=== PATIENT | female | born 1990 | race Two or more races ===

== ENCOUNTER 2024-01-10 10:52 | Outpatient (AMB) | payer OTHER, SELFPAY ==
--- NOTE | 2024-01-10 11:08 | MHC.OFFVIS ---
Vital Signs 01/10/24 11:10 Height 5 ft 1 in Weight 197 lb 5.019 oz BMI 37.3 BP 126/72 Blood Pressure Location Rt brachial Position Sitting Pulse 84 Pulse Source Pulse Oximeter Pulse Oximetry (%) 99 Oxygen Delivery Method Room Air Intake Visit Reasons: Joint Pain Intake Note: New pt presents today for joint pain consult, referred by by pcp Dr Biggs Reports pain in multiple joints. States pain started approx 4 years ago, but has gotten worse. 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 The condition started approximately 4 years ago but has been worsening. She complains of pain in her hands, wrists,. She denies any swelling. She states that when she wakes up her feet are painful to step on. She denies any skin rashes. Denies any symptoms suggestive of Raynaud's. Denies any weight loss or fevers. Denies any blood or frothy urine. There is no history of DVT/PE. Patient had 4 pregnancies, 2 children and 2 miscarriages. She also has headaches. She takes ibuprofen 800 mg daily as well as Tylenol daily. Does not help her pain much but he also takes it for her headaches. She is unaware of any family history of an autoimmune rheumatic disease. [facility] Surgical History Hx of cholecystectomy Hx of section Family History Other Family history of arthritis Social History Household Members: Children Alcohol intake: current Alcohol intake frequency: holidays/special occasions only Patient Tobacco Use Status: Never used Tobacco Current occupational status: unemployed Female Reproductive History Menstrual Total pregnancies: 4 Number of Living Children: 2 Review of Systems Const Denies fatigue, Reports headache(s), Reports weakness, Reports weight gain and Denies weight loss ENT Reports dysphagia and Reports headache(s) Card Reports dyspnea Resp Reports dyspnea GI Reports dysphagia, Reports heartburn and Reports nausea Musc Reports myalgias, Reports arthralgias and Denies joint swelling Skin/Breast Reports alopecia Neuro Reports headache(s) and Reports weakness Psych Reports abnormal sleep pattern and Reports depression Endo Denies fatigue Physical Exam Vital Signs: Last Vital Signs Pulse 84 01/10/24 11:10 BP 126/72 01/10/24 11:10 Pulse Ox 99 01/10/24 11:10 Oxygen Delivery Method Room Air 01/10/24 11:10 BMI result Body Mass Index 37.3 Const General: cooperative, healthy appearing and comfortable Nutritional Appearance: obese Orientation/consciousness: patient oriented x3 Limitations: no limitations HEENT Head: Yes normocephalic and Yes atraumatic Mouth: moist mucous membranes Resp Effort & Inspection: normal respiratory effort and able to speak in complete sentences Auscultation: clear to auscultation bilaterally Cardio Rate: regular rate Rhythm: regular rhythm Skin General skin exam: no rashes or lesions noted Neuro General: patient oriented x3 Extrem Other: No active synovitis Multiple myofascial tender points Normal nailfold capillaroscopy Negative straight leg raise test Normal range of motion of hands, wrists, elbows without pain Normal range of motion of knees without pain Negative MTP squeeze test Results Reviewed Results Reviewed: Labs 2023 LISA screen negative ESR 21 Assessment & Plan Assessment & Plan (1) Diffuse pain: Code(s): R52 - Pain, unspecified Category: Medical Plan: This is a 33-year-old female who presents for evaluation of diffuse pain. Upon evaluation I do not see any signs suggestive of autoimmune rheumatic disease. Follow-up with PCP Plan I spent 20 minutes reviewing patient's chart, evaluating patient, counseling patient and documenting in the chart Coding Level of Care Code New Pt Level 3 (03322) Diagnoses Diffuse pain R52
[2024-01-10 11:10] VITALS: BP 126/72; PULSE 84; O2SAT 99; BMI 37.3
== END 2024-01-10 11:56 | disposition home or self-care (01) ==
PROVIDERS: PCP Internal Medicine; Visit Provider Student in an Organized Health Care Education/Training Program
DX: R52 Pain, unspecified (principal)
CPT/HCPCS: 99203

== ENCOUNTER → 2024-01-10 10:52 | Outpatient (BNVA) | payer OTHER, SELFPAY | PROVIDERS: PCP Internal Medicine; Visit Provider Student in an Organized Health Care Education/Training Program | DX: R52 Pain, unspecified (principal) | CPT/HCPCS: 99202 ==

== ENCOUNTER 2025-02-20 11:03 | Outpatient (AMB) | payer OTHER, SELFPAY ==
[2025-02-20 11:19] VITALS: BP 142/89; PULSE 86; O2SAT 98; BMI 37.1
--- NOTE | 2025-02-20 11:19 | A.OFFVIS_ITS ---
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 She reports this pain started in 2019. She denies any inciting events. She reports that prolonged sitting aggravates the pain the most. She reports the pain is most severe in the morning. She feels herself in the morning completely stiff. At the morning of exam her pain is 7 to 8/10. In the morning she feels her pain 10/10. In terms of tissue damage he describes her pain as stabbing, lancinating, cut, lacerating, pinching, cramping, crushing, tiring, exhausting, tingling and stinging sensation. She is not able to sleep normally, can not do activities of daily living because of her pain, can not take care of herself, can not function normally, she is on permanent disability because of this pain syndrome, she also has learning disability. Weather changes in movements aggravate her pain. Heat applications and ibuprofen makes her pain slightly better. She went for MRI at [facility] results of which are not available to me, she received multiple sessions of physical therapy which were terminated for non progression and pain aggravation because of physical therapy. She tried chiropractic manipulations which increase her pain she tried 10s unit applications which helps her pain very little. Attempt of injection was made to the patient it was cortisone injection she stated, however anatomical target of the injection is not known to the patient. She reports diclofenac medication helps her pain intermittently. Her past medical history significant for headaches, surgical history 2 C sections, she denies smoking cigarettes denies drinking alcohol denies recreational drugs. [facility] Surgical History Hx of cholecystectomy Hx of section Family History Other Family history of arthritis Social History Household Members: Children Alcohol intake: current Alcohol intake frequency: holidays/special occasions only Patient Tobacco Use Status: Never used Tobacco Current occupational status: unemployed Review of Systems Const All systems reviewed & are unremarkable except as noted in HPI and below ENT Reports Normal hearing present Neuro Reports Normal hearing present, Denies Abnormal speech present, Denies confusion and Denies Sensory deficit (Neuro) Psych Denies confusion Physical Exam Vital Signs: Last Vital Signs Pulse 86 02/20/25 11:19 BP 142/89 H 02/20/25 11:19 Pulse Ox 98 02/20/25 11:19 Oxygen Delivery Method Room Air 02/20/25 11:19 BMI result Body Mass Index 37.1 Const General: no acute distress; No confusion Nutritional Appearance: obese morbidly obese Orientation/consciousness: patient oriented x3 and No confusion Eyes General: appearance normal, both eyes and all related structures Pupils: Equal, round and reactive pupils present EOM: EOMs intact bilaterally Neck Other: Axial neck compression aggravates the pain. Flexing neck forward and flexing backwards equally aggravate her pain in the neck. Reports radiation of the pain to the upper shoulders but denies radiation of the pain to the arms, forearms or hands. Denies numbness and weakness in bilateral upper extremities. Neck: No full ROM Chest Chest palpation & inspection: normal inspection of the chest Resp Effort & Inspection: normal respiratory effort, able to speak in complete sentences, normal respiratory pattern, no audible wheezes and no cough Cardio Jugular venous distension: no JVD GI Inspection: Yes normal to inspection Back/Spine/Pelvis Other: Flexing forward and flexing backwards equally aggravate the pain however flexing forward patient reports severe discomfort. There is no tenderness on palpation in paraspinal spinal regions lumbar spine. There is severe tenderness on palpation in the projection of the right sacroiliac joint. Amadou test, Gaenslen test, pelvic distraction test all positive on the right and negative on the left. SLR is negative bilaterally. Lasegue test is negative bilaterally. Neuro General: patient oriented x3, gait normal and No confusion Cranial nerves: Yes CN's II-XII intact bilaterally, Yes Equal, round and reactive pupils present, Yes Normal hearing present and Yes Ability to bilaterally elevate shoulders present Speech: No Abnormal speech present Gait exam (Neuro): Normal gait present Motor exam (neuro): 5/5 motor strength present throughout Sensory Exam: No Sensory deficit (Neuro) Extrem General: No pedal edema Psych Speech and movement: Normal speech and movement present Affect: normal affect Attitude: cooperative Thought process: Normal thought process present Thought content: Normal thought content present Insight: Good insight present (Psych) Judgement: Good judgement present (Psych) Assessment & Plan Assessment & Plan (1) Cervicalgia: Code(s): M54.2 - Cervicalgia Category: Medical (2) Spondylosis of cervical region without myelopathy or radiculopathy: Code(s): M47.812 - Spondylosis without myelopathy or radiculopathy, cervical region Category: Medical (3) Sacroiliitis: Code(s): M46.1 - Sacroiliitis, not elsewhere classified Category: Medical (4) Sacroiliac joint dysfunction of right side: Code(s): M53.3 - Sacrococcygeal disorders, not elsewhere classified Category: Medical (5) Chronic pain syndrome: Code(s): G89.4 - Chronic pain syndrome Category: Medical (6) Vertebrogenic low back pain: Code(s): M54.51 - Vertebrogenic low back pain Category: Medical Plan We discussed possibility of treating this patient's pain with diagnostic right sacroiliac joint injection. Possibility exists if diagnostic sacroiliac joint injection will help her pain to treated with either SI joint fusion or SI joint PNS stimulation. However if diagnostic sacroiliac joint injection will result in no pain improvement I will consider vertebra genic pain syndrome as a sort of the pain. Patient reports that flexing forward and prolonged sitting aggravate her pain the most. I recommended the patient to bring me the CD from [facility] MRI facility to help me to diagnose her pain syndrome especially if diagnostic right sacroiliac joint injection will result in no lower back improvement. The pain in the neck most likely related to spondylosis of the cervical spine. After we complete treating her pain in the lumbar spine we can attempt treating her neck pain with sprint PNS. To help her to sleep at night and to alleviate stiffness in the morning I will start her on tizanidine 2 mg 3 times a day. Medications: New tizanidine 2 mg PO TID PRN 90 tabs 8RF muscle spasticity 30 days Patient Instructions: I here by testify that I spent 45 minutes in conversation with this patient as well as planning her care and organizing this note. Coding Level of Care Code New Pt Level 4 (41866) Diagnoses Cervicalgia M54.2 Spondylosis of cervical region without myelopathy or radiculopathy M47.812 Sacroiliitis M46.1 Sacroiliac joint dysfunction of right side M53.3 Chronic pain syndrome G89.4 Vertebrogenic low back pain M54.51
--- OUTSIDE RECORDS SUMMARY | 2025-02-20 12:05 | XMS_ITS | Encounter Summary ---
Author Organization [facility] Address [address] [place] [address] Care Team Providers Care Doughnut Icer Machine Name Role Phone Luz Marina Biggs MD Primary Care Provider [phone] Reason for Visit * Reason Onset Date Comments Vaginal Pain 02/18/2025 Encounter Details Date Type Department Care Team (Late st Contact Info) Description 02/18/2025 Telephone Obstetrics and Gynecology - [address] [id number] Tami Metzger, [facility] [address] [place] [address] Vaginal Pain Social History Tobacco Use Types Packs/Day Years Used Date Smoking Tobacco: Never Smokeless Tobacco: Never Alcohol Use Standard Drinks/Week Comments Not Currently 0 (1 standard drink = 0.6 oz pur e alcohol) Comments No Sex and Gender Information Value Date Recorded Sex Assigned at Not on file Legal Sex Female 9:03 AM EST Gender Identity Not on file Sexual Orientation Not on file documented as of this encounter Progress Notes * Silvia Dexter RN - 02/18/2025 3:34 PM EDT Spoke with pt- c/o vaginal dryness and pain with sex. Also has vaginal odor at times. Appointment scheduled. Advised to use coconut oil in the meantime for dryness. Pt agrees. * Shaila Silva - 02/18/2025 1:49 PM EDT Chief Complaint/problem: Pt c/o pain during intercourse with bleeding and dryness. How long has the patient had this problem? 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 ARTIST provider: Tami Metzger CNM Last menstrual period (LMP) or EDC (due date): documented in this encounter Plan of Treatment Upcoming Encounters Date Type Department Care Team (Late st Contact Info) Description 03/22/2025 2:30 PM EDT Office Visit Obstetrics [facility]cology [facility] [address] [place] [address] Jahaira Roa, [facility] [address] [place] [address] documented as of this encounter Visit Diagnoses Not on filedocumented in this encounter Care Teams Doughnut Icer Machine Relationship Specialty Start Date End Date Luz Marina Biggs MD [address] [place] [address] PCP - General 08/08/23 documented as of this encounter
== END 2025-02-20 11:38 | disposition home or self-care (01) ==
LOC: HO.PMC 11:04
PROVIDERS: PCP Internal Medicine; Referring Provider Nurse Practitioner Family; Visit Provider Anesthesiology
DX: M54.2 Cervicalgia (principal); M47.812 Spondylosis without myelopathy or radiculopathy, cervical region; M46.1 Sacroiliitis, not elsewhere classified; M53.3 Sacrococcygeal disorders, not elsewhere classified; G89.4 Chronic pain syndrome; M54.51 Vertebrogenic low back pain
CPT/HCPCS: 99204

== ENCOUNTER → 2025-02-20 11:03 | Outpatient (BNVA) | payer OTHER, SELFPAY | PROVIDERS: PCP Internal Medicine; Referring Provider Nurse Practitioner Family; Visit Provider Anesthesiology | DX: M54.2 Cervicalgia (principal); M47.812 Spondylosis without myelopathy or radiculopathy, cervical region; M46.1 Sacroiliitis, not elsewhere classified; M53.3 Sacrococcygeal disorders, not elsewhere classified; M54.51 Vertebrogenic low back pain; G89.4 Chronic pain syndrome | CPT/HCPCS: 99202 ==